=== PATIENT | male | born 1990 | race Caucasian/White ===

== ENCOUNTER 2023-02-01 17:37 | Emergency (ER) | payer OTHER ==
[~2023-02-01] VITALS: Ht 172.7 cm; Wt 74.8 kg
[2023-02-01 18:01] VITALS: BP 124/79; PULSE 79; RESP 17; TEMP 97.6; O2SAT 99
[2023-02-01 19:35] VITALS: O2SAT 97
[2023-02-01] MEDS ORDERED: NAPR-1704 PO (20:36)
[2023-02-01 20:44] VITALS: BP 123/75; PULSE 65; RESP 16; TEMP 97.6; O2SAT 97
== END 2023-02-01 20:44 | disposition home or self-care (01) ==
LOC: MED 17:37
DX: M94.0 Chondrocostal junction syndrome [Tietze] (principal); F17.210 Nicotine dependence, cigarettes, uncomplicated; Z79.1 Long term (current) use of non-steroidal anti-inflammatories (NSAID)
CPT/HCPCS: 71101; 99283